=== PATIENT | female | born 1955 | race Caucasian/White ===

== ENCOUNTER 2022-04-18 14:55 | Emergency (ER) | payer OTHER ==
[~2022-04-18] VITALS: Ht 157.5 cm; Wt 81.8 kg
[2022-04-18] MEDS ORDERED: LETR2.5 PO (15:11)
[2022-04-18] MEDS ORDERED: OXYB5TAB15 PO (15:11)
[2022-04-18] MEDS ORDERED: ESCI20TA87 PO (15:11)
[2022-04-18] MEDS ORDERED: MULT-1203 PO (15:11)
[2022-04-18 18:40] VITALS: BP 122/64
== END 2022-04-18 18:45 | disposition home or self-care (01) ==
LOC: EMS 14:59
DX: H66.91 Otitis media, unspecified, right ear (principal); H60.91 Unspecified otitis externa, right ear; Z85.9 Personal history of malignant neoplasm, unspecified
CPT/HCPCS: 99283; Z7502